=== PATIENT | female | born 1995 | race Caucasian/White ===

== ENCOUNTER 2017-10-23 18:44 | Observation (INO) | payer OTHER ==
[2017-10-23] MEDS ORDERED: NS 0.9% 1000 ML* 1,000 ML IV ONE (19:18)
[2017-10-23] MEDS ORDERED: Morphine INJ* 4 MG/ML 1 ML CARPUJECT IV ONE ×2 (19:18→21:23)
[2017-10-23 19:47] LABS: Hematocrit 40 % (35-47); Hemoglobin 13.8 g/dl (12.0-16.0); Mean Corpuscular HGB Conc 35 g/dl (31-36); Mean Corpuscular Hemoglobin 31 pg (27-31); Mean Corpuscular Volume 88 fL (80-97); Mean Platelet Volume 8 um3 (7.4-10.4); Red Blood Count 4.53 10^6/ul (4.0-5.4); Red Cell Distribution Width 13 % (10.5-15); White Blood Count 10.6 10^3/ul (3.5-10.8)
[2017-10-23] MEDS: Ondansetron INJ* 2 MG/ML VIAL IV ONE (19:49)
[2017-10-23 20:01] LABS: ALT 12 U/L (7-52); AST 16 U/L (13-39); Albumin 4.2 g/dL (3.2-5.2); Alkaline Phosphatase 44 U/L (34-104); Anion Gap 10 mmol/L (2-11); Blood Urea Nitrogen 7 mg/dL (6-24); C Reactive Protein 11.68 mg/L (< 5.00); CO2 Carbon Dioxide 22 mmol/L (22-32); Calcium 9.6 mg/dL (8.6-10.3); Chloride 102 mmol/L (101-111); EGFR African American 104.7 (>60); EGFR Non-African American 81.4 (>60); Globulin 3.1 g/dL (2-4); Glucose 90 mg/dL (70-100); Lipase 13 U/L (11.0-82.0); Potassium 3.5 mmol/L (3.5-5.0); Sodium 134 mmol/L (133-145); Total Protein 7.3 g/dL (6.4-8.9)
[2017-10-23] MEDS ORDERED: Ketorolac INJ* 30 MG/ML 1 ML VIAL IV PUSH ONE (20:01)
[2017-10-23] MEDS ORDERED: Ketorolac INJ* 30 MG/ML 1 ML VIAL ONE (20:02)
[2017-10-23] MEDS ORDERED: Iohexol 300* (CONTRAST) 10 ML SDV IV ONE (20:27)
--- NOTE | 2017-10-23 21:15 | RAD ---
INDICATION: Abdominal pain COMPARISON: None TECHNIQUE: Axial source images were obtained from the hemidiaphragms to the symphysis pubis following administration of intravenous contrast only. 69 mL Omnipaque 300 was utilized. Coronal and sagittal reconstructed images were acquired. The lack of oral contrast and a paucity of fat plates leads to a mild limitation in the sensitivity of this examination. Lung bases: The lung bases are clear. Liver: The liver is normal in size. There are no masses. There is no ductal dilatation. Gallbladder: There are no calcified gallstones. There is no evidence of wall thickening or pericholecystic fluid. Spleen: The spleen is normal in size. There are no masses. Pancreas: There is no focal pancreatic mass or ductal dilatation. Adrenal glands: There is no evidence of adrenal mass. Kidneys: The kidneys are normal in size and position. There are prompt nephrograms and there is prompt excretion bilaterally. There are no renal parenchymal masses. There is no evidence of nephrolithiasis. Adenopathy: There is no evidence of adenopathy by size criteria. Fluid collections: There are no free or localized fluid collections. Vessels:There are no significant atherosclerotic changes involving the aorta. There is no focal aneurysm. The iliac vessels are normal in caliber. The IVC appears normal. GI tract: Evaluation of bowel is limited without oral contrast. There are no gross abnormalities the upper GI tract. The colon is unremarkable. The appendix is visualized and appears normal. Pelvic organs: The uterus and adnexa appear normal Bladder: There are no bladder masses. Abdominal and pelvic soft tissues: The extraperitoneal abdominal and pelvic soft tissues appear normal.. Osseous structures: There are no acute osseous findings. Other: None IMPRESSION: NO SPECIFIC CT ABNORMALITIES WITHIN LIMITATIONS OF THIS EXAMINATION. NORMAL APPENDIX.
[2017-10-23 23:13] LABS: Urine Bilirubin Negative (Negative); Urine Glucose Negative (Negative); Urine Nitrite Negative (Negative)
[2017-10-23] MEDS ORDERED: ceFOXitin 2 GM IVPREMIX* 2 GM/50 ML BAG IVPB ONE (23:51)
[2017-10-23] MEDS ORDERED: DOXYcycline IV* 100 MG in NS 0.9% 250 ML* 250 ML IVPB ONE (23:51)
[2017-10-24] MEDS ORDERED: NS 0.9% 1000 ML* 1,000 ML IV ONE ×2 (00:47→05:16)
[2017-10-24] MEDS ORDERED: Ondansetron INJ* 2 MG/ML VIAL ONE (01:12)
[2017-10-24] MEDS: Ondansetron INJ* 2 MG/ML VIAL IV ONE (01:13)
[2017-10-24] MEDS ORDERED: Morphine INJ* 4 MG/ML 1 ML CARPUJECT IV ONE (02:18)
[2017-10-24] MEDS ORDERED: Morphine INJ* 10 MG/ML 1 ML CARPUJECT ONE (02:25)
[2017-10-24] MEDS ORDERED: Acetaminophen TAB* 325 MG ONE (03:47)
[2017-10-24] MEDS ORDERED: Acetaminophen TAB* 325 MG PO ONE (03:51)
[2017-10-24] MEDS ORDERED: Morphine INJ* 2 MG/ML 1 ML SYRINGE (TWO MG - NEW SYRINGE VERSION) IV PRN (05:02)
[2017-10-24] MEDS ORDERED: LORazepam INJ* 2 MG/ML 1 ML VIAL IV PUSH PRN (05:02)
[2017-10-24] MEDS ORDERED: Al Hydrox/Mg Hydrox/Simet LIQ* 30 ML UDC PO PRN (05:04)
[2017-10-24] MEDS ORDERED: Senna TAB PO PRN (05:04)
[2017-10-24] MEDS ORDERED: Docusate CAP* 100 MG PO PRN (05:04)
[2017-10-24] MEDS ORDERED: Morphine INJ* 2 MG/ML 1 ML SYRINGE (TWO MG - NEW SYRINGE VERSION) ONE (05:08)
[2017-10-24] MEDS ORDERED: NS 0.9% 1000 ML* 1,000 ML IV SCH (05:15)
[2017-10-24 05:57] LABS: Erythrocyte Sed Rate 8 mm/Hr (0-14)
[2017-10-24] MEDS ORDERED: Ciprofloxacin 400MG IVPREMIX(* 400 MG/200 ML BAG IVPB SCH (06:00)
--- NOTE | 2017-10-24 06:33 | ED ---
Kenton Kenney Gabriel, scribed for Alexander Sifuentes MD on 10/23/17 at 1917 . Abdominal Pain/Female - HPI Summary HPI Summary: This patient is a 22 year old F BIBA to [facility] with a chief complaint of ABD pain since 11:00 today. The patient rates the pain 5/10 in severity. Symptoms aggravated by breathing and abrupt movements. Patient reports fever, nausea, sore throat, and spotting with brown blood. Patient denies vomiting, cough, melena, joint pain, and painful intercourse. Patient also states there is no chance she is and there is no Chrons disease in her family. She has had similar episodes and was seen but claims it diagnosed as liver problems and dehydration. - History of Current Complaint Chief Complaint: EDAbdPain Stated Complaint: ABD PAIN Hx Obtained From: Patient ?: No Onset/Duration: Sudden Onset, Still Present Timing: Constant Pain Intensity: 5 Pain Scale Used: 0-10 Numeric Location: Discrete At: RLQ Aggravating Factor(s): Movement, Deep Breaths Associated Signs and Symptoms: Positive: Negative - vomiting, cough, melena, joint pain, and painful intercourse., Other: - fever, nausea, sore throat, and spotting with brown blood Allergies/Adverse Reactions: Allergies Allergy/AdvReac Type Severity Reaction Status Date / Time No Known Allergies Allergy Verified 10/23/17 18:59 PMH/Surg Hx/FS Hx/Imm Hx Previously Healthy: Yes Endocrine/Hematology History: Denies: Hx Diabetes Cardiovascular History: Denies: Hx Myocardial Infarction Respiratory History: Denies: Hx Chronic Obstructive Pulmonary Disease (COPD) Infectious Disease History: No Infectious Disease History: Denies: Traveled Outside the [place] in Last 30 Days - Family History Known Family History: Positive: Cardiac Disease Negative: Diabetes - Social History Alcohol Use: Occasionally Hx Substance Use: Yes Substance Use Type: Reports: Marijuana Hx Tobacco Use: No Smoking Status (MU): Never Smoked Tobacco Do You Chew or Dip Tobacco: No Review of Systems Positive: Fever Positive: Sore Throat Negative: Cough Gastrointestinal: Negative - melena Positive: Abdominal Pain, Nausea. Negative: Vomiting Genitourinary: Negative - painful intercourse Positive: other - vaginal spotting Musculoskeletal: Negative - joint pain All Other Systems Reviewed And Are Negative: Yes Physical Exam - Summary Physical Exam Summary: Appearance: Well appearing, no pain distress Skin: warm, dry, reflects adequate perfusion Head/face: normal Eyes: EOMI, ALEJA ENT: tonsils are enlarged but there are no exudates Neck: supple, non-tender Respiratory: CTA, breath sounds present Cardiovascular: pulses symmetrical, patient is tachycardia but regular Abdomen: non-tender, soft, no CVA tenderness, no guarding but moderate right sided tenderness with positive Mcburneys point Bowel: present Musculoskeletal: normal, strength/ROM intact, negative obturator and psoas signs Neuro: normal, sensory motor intact, A&Ox3 Vaginal : Moderate chocolate brown discharge with cervical mucus. No cervical motion tenderness. No adnexal masses, uterus feels large Performed with Bambi in the room Triage Information Reviewed: Yes Vital Signs On Initial Exam: Initial Vitals Temp Pulse Resp BP Pulse Ox 103.4 F 113 20 110/73 98 10/23/17 18:48 10/23/17 18:48 10/23/17 18:48 10/23/17 18:48 10/23/17 18:48 Vital Signs Reviewed: Yes Diagnostics - Vital Signs Vital Signs Temp Pulse Resp BP Pulse Ox 10/23/17 18:48 103.4 F 113 20 110/73 98 - Laboratory Lab Results: Lab Results 10/23/17 10/23/17 10/23/17 Range/Units 19:35 19:35 19:35 WBC 10.6 (3.5-10.8) 10^3/ul RBC 4.53 (4.0-5.4) 10^6/ul Hgb 13.8 (12.0-16.0) g/dl Hct 40 (35-47) % MCV 88 (80-97) fL MCH 31 (27-31) pg MCHC 35 (31-36) g/dl RDW 13 (10.5-15) % Plt Count 216 (150-450) 10^3/ul MPV 8 (7.4-10.4) um3 Neut % (Auto) 91.4 H (38-83) % Lymph % (Auto) 2.5 L (25-47) % Grimes % (Auto) 5.7 (1-9) % Eos % (Auto) 0.1 (0-6) % Baso % (Auto) 0.3 (0-2) % Absolute Neuts (auto) 9.7 H (1.5-7.7) 10^3/ul Absolute Lymphs (auto) 0.3 L (1.0-4.8) 10^3/ul Absolute Monos (auto) 0.6 (0-0.8) 10^3/ul Absolute Eos (auto) 0 (0-0.6) 10^3/ul Absolute Basos (auto) 0 (0-0.2) 10^3/ul Absolute Nucleated RBC 0 10^3/ul Nucleated RBC % 0 ESR 8 (0-14) mm/Hr Sodium 134 (133-145) mmol/L Potassium 3.5 (3.5-5.0) mmol/L Chloride 102 (101-111) mmol/L Carbon Dioxide 22 (22-32) mmol/L Anion Gap 10 (2-11) mmol/L BUN 7 (6-24) mg/dL Creatinine 0.87 (0.51-0.95) mg/dL Est GFR ( Amer) 104.7 (>60) Est GFR (Non-Af Amer) 81.4 (>60) BUN/Creatinine Ratio 8.0 (8-20) Glucose 90 (70-100) mg/dL Lactic Acid 0.9 (0.5-2.0) mmol/L Calcium 9.6 (8.6-10.3) mg/dL Total Bilirubin 0.60 (0.2-1.0) mg/dL AST 16 (13-39) U/L ALT 12 (7-52) U/L Alkaline Phosphatase 44 (34-104) U/L C-Reactive Protein 11.68 H (< 5.00) mg/L Total Protein 7.3 (6.4-8.9) g/dL Albumin 4.2 (3.2-5.2) g/dL Globulin 3.1 (2-4) g/dL Albumin/Globulin Ratio 1.4 (1-3) Lipase 13 (11.0-82.0) U/L Beta HCG, Quant < 0.60 mIU/mL Urine Color Urine Appearance Urine pH (5-9) Ur Specific [place] (1.010-1.030) Urine Protein (Negative) Urine Ketones (Negative) Urine Blood (Negative) Urine Nitrate (Negative) Urine Bilirubin (Negative) Urine Urobilinogen (Negative) Ur Leukocyte Esterase (Negative) Urine Glucose (Negative) Influenza A (Rapid) (Negative) Influenza B (Rapid) (Negative) 10/23/17 10/23/17 Range/Units 21:36 23:01 WBC (3.5-10.8) 10^3/ul RBC (4.0-5.4) 10^6/ul Hgb (12.0-16.0) g/dl Hct (35-47) % MCV (80-97) fL MCH (27-31) pg MCHC (31-36) g/dl RDW (10.5-15) % Plt Count (150-450) 10^3/ul MPV (7.4-10.4) um3 Neut % (Auto) (38-83) % Lymph % (Auto) (25-47) % Grimes % (Auto) (1-9) % Eos % (Auto) (0-6) % Baso % (Auto) (0-2) % Absolute Neuts (auto) (1.5-7.7) 10^3/ul Absolute Lymphs (auto) (1.0-4.8) 10^3/ul Absolute Monos (auto) (0-0.8) 10^3/ul Absolute Eos (auto) (0-0.6) 10^3/ul Absolute Basos (auto) (0-0.2) 10^3/ul Absolute Nucleated RBC 10^3/ul Nucleated RBC % ESR (0-14) mm/Hr Sodium (133-145) mmol/L Potassium (3.5-5.0) mmol/L Chloride (101-111) mmol/L Carbon Dioxide (22-32) mmol/L Anion Gap (2-11) mmol/L BUN (6-24) mg/dL Creatinine (0.51-0.95) mg/dL Est GFR ( Amer) (>60) Est GFR (Non-Af Amer) (>60) BUN/Creatinine Ratio (8-20) Glucose (70-100) mg/dL Lactic Acid (0.5-2.0) mmol/L Calcium (8.6-10.3) mg/dL Total Bilirubin (0.2-1.0) mg/dL AST (13-39) U/L ALT (7-52) U/L Alkaline Phosphatase (34-104) U/L C-Reactive Protein (< 5.00) mg/L Total Protein (6.4-8.9) g/dL Albumin (3.2-5.2) g/dL Globulin (2-4) g/dL Albumin/Globulin Ratio (1-3) Lipase (11.0-82.0) U/L Beta HCG, Quant mIU/mL Urine Color Yellow Urine Appearance Clear Urine pH 5.0 (5-9) Ur Specific [place] > 1.060 H (1.010-1.030) Urine Protein Negative (Negative) Urine Ketones 2+ H (Negative) Urine Blood Negative (Negative) Urine Nitrate Negative (Negative) Urine Bilirubin Negative (Negative) Urine Urobilinogen Negative (Negative) Ur Leukocyte Esterase Negative (Negative) Urine Glucose Negative (Negative) Influenza A (Rapid) Negative (Negative) Influenza B (Rapid) Negative (Negative) Result Diagrams: 10/23/17 19:35 10/23/17 19:35 Lab Statement: Any lab studies that have been ordered have been reviewed, and results considered in the medical decision making process. - CT CT ABD/Pelvis CT Interpretation Completed By: Radiologist - NO SPECIFIC CT ABNORMALITIES WITHIN LIMITATIONS OF THIS EXAMINATION. NORMAL APPENDIX. ED physician has reviewed this radiology report and agrees CT ABD/Pelvis CT Interpretation Completed By: Radiologist - thickening of wall of terminal ilium consistent with ileitis ED physician has reviewed this radiology report and agrees. - Additional Comments Diagnostic Additional Comments: Pelvic US reveals, no evidence for acute diseae. ED physician has reviewed this radiology report and agrees. Re-Evaluation - Re-Evaluation First Eval Comment: pt with fluxation and recurrence of pain throughtout stay. Her fever went up and down several times. Abdominal Pain Fem Course/Dx - Course Course Of Treatment: Pt with high fever and RLQ pain. Initial CT was non- diagnostic but I had concern for TI. US was then neg and I counseled pt about re -CT with oral contrast for purpose of diagnosis of TI and possible Crohns. This CT was + for terminal ileitus, likely due to Crohns. Pt reported that she had RLQ pain in the past which was worked up and she was told it was due to "dehydration". Admit, IV abx, GI consult for possible colonoscopy. - Diagnoses Provider Diagnoses: Terminal ileitis, Acute Crohn's disease, Severe sepsis - Provider Notifications Discussed Care Of Patient With: Pebbles Leblanc Time Discussed With Above Provider: 04:39 Instructed by Provider To: Other - Discussed patient health with Dr. Leblanc she agreed to admit the patient. - Critical Care Time Critical Care Time: 30-74 min - RETURN TO THE EMERGENCY DEPARTMENT FOR CHANGING OR WORSENING SYMPTOMS. Discharge - Discharge Plan Condition: Stable Disposition: ADMITTED TO [facility] documentation as recorded by the Kenton watson Gabriel accurately reflects the service I personally performed and the decisions made by , Alexander Sifuentes MD.
[2017-10-24] MEDS ORDERED: metroNIDAZOLE IV 500 MG/100ML* 500 MG/100 ML BAG IVPB SCH (07:30)
--- NOTE | 2017-10-24 07:34 | RAD ---
INDICATION: Right-sided pelvic pain and right lower quadrant pain. COMPARISON: There are no prior studies available for comparison. TECHNIQUE: Multiple real-time transvaginal images of the pelvis were obtained. FINDINGS: The uterus is normal in size, shape and echogenicity. The uterus measured 9.5 x 4.0 x 6.0 cm. The endometrial echo measured 0.5 cm in thickness. The right ovary measured 3.2 x 1.1 x 2.0 cm. The left ovary measured 3.3 x 1.1 x 2.3 cm. There is vascular flow within both ovaries. No free intraperitoneal fluid is seen. IMPRESSION: NEGATIVE EXAM.
--- NOTE | 2017-10-24 08:10 | RAD ---
CLINICAL HISTORY: Abdominal pain with concern for Crohn's disease. COMPARISON: CT abdomen pelvis dated October 23, 2017 TECHNIQUE: Oral contrast only CT examination of the abdomen and pelvis from the lung bases through the initial tuberosities. FINDINGS: VISUALIZED LUNG BASES: The visualized lung bases are grossly clear. There is no pleural effusion. ABDOMEN AND PELVIS: Evaluation of the solid organs and vasculature is limited without intravenous contrast. The liver, spleen, pancreas and adrenal glands are grossly normal in appearance. The gallbladder is normal. The kidneys are normal in appearance without focal mass, calcification or signs of hydronephrosis. The oral contrast has progressed as far as the splenic flexure. The small and large bowel are not distended. At the terminal ileum there is mild focal bowel wall thickening measuring up to 4 mm in thickness (coronal image 33). The partially gas and partially contrast-filled appendix measures up to 4 mm in diameter (coronal image 28 and axial image 61). There is no gross retroperitoneal or mesenteric lymphadenopathy. The pelvic viscera is normal in appearance. The abdominal aorta and iliac arteries are normal in course and diameter. There are no sinister bone lesions. IMPRESSION: Mild thickening of the wall of the terminal ileum could be seen in the setting of infectious or inflammatory bowel disease. Normal appendix.
[2017-10-24] MEDS: Ondansetron INJ* 2 MG/ML VIAL IV PRN ×2 (08:39→18:20)
[2017-10-24] MEDS: Acetaminophen TAB* 325 MG PO PRN ×3 (08:53→19:47)
[2017-10-24 09:18] LABS: Hematocrit 33 % (35-47); Hemoglobin 11.2 g/dl (12.0-16.0); Mean Corpuscular HGB Conc 34 g/dl (31-36); Mean Corpuscular Hemoglobin 31 pg (27-31); Mean Corpuscular Volume 89 fL (80-97); Mean Platelet Volume 8 um3 (7.4-10.4); Red Blood Count 3.67 10^6/ul (4.0-5.4); Red Cell Distribution Width 12 % (10.5-15)
[2017-10-24 09:40] LABS: BUN/Creatinine Ratio 7.6 (8-20); Calcium 7.5 mg/dL (8.6-10.3); Potassium 3.3 mmol/L (3.5-5.0)
--- NOTE | 2017-10-24 10:48 | PN ---
Subjective Date of Service: 10/24/17 Interval History: This is an otherwise healthy 22 yo female who presented with c/o abd pain and fever. CT demonstrated mild thickening of the terminal ileum. She was admitted for treatment of colitis/enteritis. This am, she reports that her pain is slightly improved. She was febrile most of the night, that has improved this am. She has no appetite and vomited once earlier. She has no diarrhea. Last BM was 1-2d ago and was non-bloody. No h/o bloody BMs or prior c/o's of abd pain. Objective Active Medications: Acetaminophen (Tylenol Tab*) 650 mg PO Q4H PRN PRN Reason: PAIN Last Admin: 10/24/17 08:53 Dose: 650 mg Al Hydrox/Mg Hydrox/Simethicone (Maalox Plus*) 30 ml PO Q6H PRN PRN Reason: INDIGESTION Docusate Sodium (Colace Cap*) 100 mg PO BID PRN PRN Reason: CONSTIPATION Sodium Chloride (Ns 0.9% 1000 Ml*) 1,000 mls @ 150 mls/hr IV PER RATE NORBERTO Last Admin: 10/24/17 07:33 Dose: 150 mls/hr Ciprofloxacin/Dextrose (Cipro 400 Mg Ivpremix(*)) 400 mg in 200 mls @ 200 mls/ hr IVPB Q12H NORBERTO Metronidazole/Sodium Chloride (Flagyl 500 Mg Ivpb*) 500 mg in 100 mls @ 100 mls /hr IVPB Q8H NORBERTO Lorazepam (Ativan Inj*) 0.5 mg IV PUSH Q4H PRN PRN Reason: ANXIETY Morphine Sulfate (Morphine Inj (Syringe)*) 2 mg IV Q4H PRN PRN Reason: PAIN - MILD Last Admin: 10/24/17 05:11 Dose: 2 mg Ondansetron HCl (Zofran Inj*) 4 mg IV Q4H PRN PRN Reason: NAUSEA/VOMITING Last Admin: 10/24/17 08:39 Dose: 4 mg Senna (Senokot Tab*) 1 tab PO BID PRN PRN Reason: CONSTIPATION Vital Signs: Temp Pulse Resp BP Pulse Ox 99.9 F 102 20 96/50 100 10/24/17 06:52 10/24/17 06:52 10/24/17 08:25 10/24/17 06:52 10/24/17 06:52 Oxygen Devices in Use Now: None Appearance: Mildly ill appearing young female in NAD Respiratory: Symmetrical Chest Expansion and Respiratory Effort, Clear to Auscultation Cardiovascular: NL Sounds; No Murmurs; No JVD, RRR Abdominal: - - BS present, soft, somewhat diffuse abd TTP, worst in RLQ Extremities: No Edema Skin: No Rash or Ulcers Neurological: Alert and Oriented x 3 Result Diagrams: 10/24/17 09:00 10/24/17 09:00 Additional Lab and Data: . Diagnostic Imaging: CT abd/pelvis - mild thickening of the terminal ileum, nl appearing appendix TVUS - WNL Assess/Plan/Problems-Billing Assessment: This is an otherwise healthy 22 yo female who present with fever and abd pain. CT suggestive of a colitis/enteritis. - Patient Problems (1) Colitis Comment: This appears infectious as opposed to inflammatory as her symptoms are acute with associated fever Cont Cipro/Flagyl along with supportive care measures Status and Disposition: Observation. Anticipate dc later today or tomorrow, once she is able to tolerate oral intake.
--- NOTE | 2017-10-24 10:56 | HP ---
CC: [facility] * HISTORY AND PHYSICAL: DATE OF ADMISSION: 10/24/17 TIME OF EVALUATION: 0500 PRIMARY CARE PHYSICIAN: [facility]. CHIEF COMPLAINT: Abdominal pain. HISTORY OF PRESENT ILLNESS: This is a 22-year-old female with an unremarkable past medical history who presented to [facility] via EMS after developing a fever and right lower quadrant pain. The patient states yesterday she developed right-sided mid abdominal pain with high fevers and muscle aches and she states she was shallow breathing throughout the entire day. [facility] went to [facility], which subsequently brought her to the emergency room for further evaluation. She states she had a similar attack several years ago and she was told that she had a kidney infection at that time. She states she had 1 large loose stool last evening, otherwise no other diarrhea. No nausea, vomiting. No changes in her weight. No recent travel. No sick contacts. Normally, she has regular bowel movements. She denies any URI symptoms. No dysuria. Last menstrual period was few months ago as she was on the control pill. She has been having some irregular spotting off and on for the few weeks. Otherwise remaining review of systems negative. In the emergency room, the patient had labs and imaging. She was given Tylenol 925 mg, cefoxitin 2 g, doxycycline, Toradol 30 mg, Morphine a total of 12 mg, Zofran and 2 L of normal saline and was referred to the hospitalist service for further evaluation. PAST MEDICAL HISTORY: Unremarkable. MEDICATIONS: control pills. ALLERGIES: No known drug allergies. FAMILY HISTORY: No family history of IBD. 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 She states her parents live in [place]. She socially drinks alcohol. She smokes marijuana every few days. Denies other illicit drug use. Code status, full code. REVIEW OF SYSTEMS: A 14-point review of systems as mentioned in the HPI, otherwise negative. PHYSICAL EXAMINATION GENERAL: No acute distress, resting comfortably. VITAL SIGNS: Temp, T-max 104 down to 102, pulse rate 104, respiratory rate 16, oxygen saturation 96% on room air, blood pressure 93/43. HEENT: Head: Normocephalic. Pupils equal and reactive, anicteric. Oropharynx : Mucous membranes moist. No erythema or exudate. NECK: Supple. No lymphadenopathy. RESPIRATORY: Clear to auscultation. No wheezes, rhonchi or rales. CARDIAC: Tachycardia. No murmurs, rubs or gallops. ABDOMEN: Positive bowel sounds. Soft. She has right-sided tenderness and no distention. EXTREMITIES: No clubbing, cyanosis or edema. +2 DPs. NEUROLOGIC: Alert and oriented x3. No focal neurologic deficits. LABORATORY DATA: White count 10.6, hemoglobin 13.8, hematocrit 40, platelets 216, neutrophils 91. Sodium 134, potassium 3.5, chloride 102, bicarb 22, BUN 7 , creatinine 0.87, glucose 90. CRP 11.6, beta hCG less than 0.6. Urinalysis shows +2 ketones, specific gravity 1.060, influenza negative. RADIOGRAPHIC DATA: Abdominal and pelvic CT shows no specific CT abnormalities on limited examination, normal appendix. She did have a CT with oral contrast done, which showed mild nonspecific wall thickening and the terminal ileum consistent with mild infectious or inflammatory terminal ileitis, nonspecific subcentimeter mesenteric lymph nodes most likely due to mesenteric adenitis. Normal color flow and Doppler waveform seen in both ovaries. No evidence of ovarian torsion on transvaginal ultrasound. ASSESSMENT: This is a 22-year-old female with an unremarkable past medical history who presents to emergency room with acute onset of right-sided abdominal pain in the setting of fever, found to have terminal ileitis. 1. Abdominal pain and fever. Assessment: The patient was found to have terminal ileitis on CT scan. CT scan most concerning for Crohn's disease, however, the acute onset x2 days. Plan: We will continue IV fluids. Continue antibiotics. We will change her over to Cipro and Flagyl. Pain control and antiemetics. We will hold off on any steroids. We will follow up with GI in the morning. We will order some stool studies as well and keep her on a clear liquid diet. 2. FEN: As mentioned, clear liquids and IV fluids. 3. DVT prophylaxis. The patient scores a 0. We will encourage ambulation. 4. Code status: Full code. PATIENT TIME: Greater than 50 minutes were spent doing the history and physical , more than half the time spent in direct patient contact. [id number]/[facility] #: [id number] [facility]
[2017-10-24] MEDS: metroNIDAZOLE IV 500 MG/100ML* 500 MG/100 ML BAG IVPB SCH (17:01)
[2017-10-24] MEDS: Ciprofloxacin 400MG IVPREMIX(* 400 MG/200 ML BAG IVPB SCH (19:47)
[2017-10-24] MEDS: Phenol 1.4% Spray* 177 ML BTL MT PRN (21:28)
[2017-10-25] MEDS: metroNIDAZOLE IV 500 MG/100ML* 500 MG/100 ML BAG IVPB SCH ×2 (00:33→09:28)
[2017-10-25 07:23] VITALS: BP 109/59
[2017-10-25] MEDS: Acetaminophen TAB* 325 MG PO PRN (07:39)
[2017-10-25] MEDS: Phenol 1.4% Spray* 177 ML BTL MT PRN (07:39)
[2017-10-25] MEDS: Ciprofloxacin 400MG IVPREMIX(* 400 MG/200 ML BAG IVPB SCH (07:39)
--- NOTE | 2017-10-26 12:53 | DS ---
CC: [facility] * DISCHARGE SUMMARY: DATE OF ADMISSION: 10/24/17 DATE OF DISCHARGE: 10/25/17 PRIMARY CARE PROVIDER: [facility]. DISCHARGING PROVIDER: FERNANDO Naranjo SUPERVISING PHYSICIAN: Dr. Benita Hester * (DICTATED BY FERNANDO NARANJO) PRIMARY DISCHARGE DIAGNOSIS: Febrile gastroenteritis. SECONDARY DISCHARGE DIAGNOSIS: None. DISCHARGE MEDICATIONS: Oral contraceptive pill. Medication changes: None. HOSPITAL IMAGIN. CT of the abdomen and pelvis shows no specific CT abnormalities with IV contrast, a normal appearing appendix. 2. A transvaginal ultrasound is unremarkable. 3. CT of the abdomen and pelvis with oral contrast shows mild thickening of the wall of the terminal ileum and again a normal appearing appendix. 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 The patient's initial labs showed no significant leukocytosis. Chemistries were unremarkable , but she was febrile with a maximum temperature in the emergency department of [address] of the abdomen and pelvis was initially done with IV contrast only, which showed a normal appearing appendix and then was subsequently repeated with oral contrast, which showed some thickening of the terminal ileum, but otherwise a benign study. The patient was subsequently admitted to the hospital for symptom management, she was unable to take anything by mouth. She was empirically started on Cipro and Flagyl for possible colitis. Because of the location of the bowel wall thickening on CT, the possibility of Crohn's disease was discussed. The patient denied any bloody bowel movements or history of such and no prior history of significant GI complaints. No significant family history of inflammatory bowel disease, Crohn's disease or other inflammatory bowel disease seems unlikely. The patient improved with symptomatic care including fluids and antiemetics and antipyretics as necessary. She did complain of sore throat with some pharyngeal erythema. Strep testing was negative. DISPOSITION AND FOLLOWUP PLAN: The patient is being discharged to home. This is likely a viral process and antibiotics were not included at discharge. Recommend that she maintain a soft and bland diet until her symptoms completely resolves and she follows up with [facility] next week. TIME SPENT: Greater than 30 minutes was spent on this discharge. FERNANDO NARANJO [id number]/[facility] #: [id number] KAMAR
== END 2017-10-25 12:20 | disposition home or self-care (01) ==
LOC: ED 18:44 → MCHPEDS 10-24 05:04 → MEDTELE 10-25 07:28
PROVIDERS: ADMIT Pediatrics; ATTEND Internal Medicine
DX: R10.11 Right upper quadrant pain (principal); R50.9 Fever, unspecified; K52.9 Noninfective gastroenteritis and colitis, unspecified
CPT/HCPCS: 36415; 74176; 74177; 76830; 80048; 80053; 81003; 83605; 83630; 83690; 84702; 85025; 85652; 86140; 87040; 87045; 87046; 87077; 87491; 87493; 87502; 87591; 87651; 87899; 96365; 96366; 96367; 96375; 96376; 99284; A9270-GY; G0378; J0694; J0744; J1885; J2270; J2405; J3480; J3490; Q9967

== ENCOUNTER 2017-12-11 17:52 | Emergency (ER) | payer OTHER ==
[2017-12-11] MEDS ORDERED: NS 0.9% 1000 ML* 1,000 ML IV ONE ×2 (18:36→21:28)
[2017-12-11] MEDS ORDERED: Ondansetron INJ* 2 MG/ML VIAL IV ONE (18:36)
[2017-12-11 19:02] LABS: ABS Basophils 0 10^3/ul (0-0.2); ABS Eosinophils 0.1 10^3/ul (0-0.6); ABS Lymphocytes 0.6 10^3/ul (1.0-4.8); ABS Monocytes 0.6 10^3/ul (0-0.8); ABS Neutrophils 12.6 10^3/ul (1.5-7.7); ABS Nucleated RBC 0 10^3/ul; Eosinophil % 0.6 % (0-6); Hematocrit 44 % (35-47); Hemoglobin 15.1 g/dl (12.0-16.0); Lymphocyte % 4.4 % (25-47); Mean Corpuscular HGB Conc 34 g/dl (31-36); Mean Corpuscular Hemoglobin 30 pg (27-31); Mean Corpuscular Volume 89 fL (80-97); Mean Platelet Volume 9 um3 (7.4-10.4); Nucleated Red Blood Cells % 0; Platelet Count 223 10^3/ul (150-450); Red Blood Count 4.97 10^6/ul (4.0-5.4); Red Cell Distribution Width 13 % (10.5-15); White Blood Count 13.9 10^3/ul (3.5-10.8)
[2017-12-11 19:13] LABS: EGFR Non-African American 88.4 (>60)
[2017-12-11] MEDS ORDERED: Metoclopramide IV* 5 MG/ML 2 ML VIAL IV ONE (21:28)
--- NOTE | 2017-12-12 00:09 | ED ---
Chucho Kenney Nikita, scribed for Leydi Skinner MD on 12/11/17 at 2327 . Progress - Progress Note Progress Note: Pt is feeling better. Pt will be discharged home with instructions to follow up with her PCP in 1-2 days. Pt is agreeable with this plan. INSTRUCTED TO RETURN TO EMERGENCY DEPARTMENT FOR ANY NEW OR WORSENING SYMPTOMS. Course/Dx - Diagnoses Provider Diagnoses: Gastroenteritis The documentation as recorded by the Chucho watson Nikita accurately reflects the service I personally performed and the decisions made by Susanne messer Abdul, MD.
[2017-12-12 00:12] VITALS: BP 100/47
--- NOTE | 2017-12-12 11:23 | ED ---
Rico Kenney Thomas, scribed for Michael Rizzo MD on 12/11/17 at 1931 . GI/ HPI - HPI Summary HPI Summary: This patient is a 22 year old F presenting to [facility] with a chief complaint of diarrhea since 1 pm today. Symptoms aggravated and alleviated by nothing. Patient reports watery and bloody diarrhea and vomiting. The patient reports eating eggs at 9AM today. - History of Current Complaint Chief Complaint: EDNauseaVomitDiarrh Time Seen by Provider: 12/11/17 18:08 Stated Complaint: VOMITING/DIARRHEA Hx Obtained From: Patient Onset/Duration: Started Hours Ago, Still Present Timing: Constant Pain Intensity: 0 Associated Signs and Symptoms: Positive: Other: - Patient reports watery and bloody diarrhea and vomiting. Aggravating Factor(s): Nothing Alleviating Factor(s): Nothing - Additional Pertinent History Primary Care Physician: MINDY - Allergy/Home Medications Allergies/Adverse Reactions: Allergies Allergy/AdvReac Type Severity Reaction Status Date / Time Banana Allergy Swelling Verified 10/24/17 18:30 Of Face,Lips,& Throat PMH/Surg Hx/FS Hx/Imm Hx Endocrine/Hematology History: Denies: Hx Diabetes Cardiovascular History: Denies: Hx Hypertension, Hx Myocardial Infarction Respiratory History: Denies: Hx Chronic Obstructive Pulmonary Disease (COPD) GI History: Reports: Other GI Disorders - Seen for similar issues, dx dehydration History: Denies: Hx Renal Disease Sensory History: Denies: Hx Contacts or Glasses, Hx Hearing Aid Opthamlomology History: Denies: Hx Contacts or Glasses - Immunization History Date of Tetanus Vaccine: utd Date of Influenza Vaccine: unk Infectious Disease History: No Infectious Disease History: Denies: Traveled Outside the [place] in Last 30 Days - Family History Known Family History: Positive: Cardiac Disease Negative: Diabetes - Social History Alcohol Use: None Hx Substance Use: Yes Substance Use Type: Reports: Marijuana Hx Tobacco Use: No Smoking Status (MU): Never Smoked Tobacco Review of Systems Negative: Fever Positive: Vomiting, Diarrhea All Other Systems Reviewed And Are Negative: Yes Physical Exam - Summary Physical Exam Summary: Appearance: The patient is well-nourished in no acute distress and in no acute pain. Skin: The skin is warm and dry and skin color reflects adequate perfusion. HEENT: The head is normocephalic and atraumatic. The pupils are equal and reactive. The conjunctivae are clear and without drainage. Nares are patent and without drainage. Mouth reveals moist mucous membranes and the throat is without erythema and exudate. The external ears are intact. The ear canals are patent and without drainage. The tympanic membranes are intact. Neck: the neck is supple with full range of motion and non-tender. There are no carotid bruits. There is no neck vein distension. Respiratory: Chest is non-tender. Lungs are clear to auscultation and breath sounds are symmetrical and equal. Cardiovascular: Heart is regular rate and rhythm. There is no murmur or rub auscultated. There is no peripheral edema and pulses are symmetrical and equal. Abdomen: The abdomen is soft and non-tender. There are normal bowel sounds heard in all four quadrants and there is no organomegaly palpated. Musculoskeletal: There is no back tenderness noted. Extremities are non-tender with full range of motion. There is good capillary refill. There is no peripheral edema or calf tenderness elicited. Neurological: Patient is alert and oriented to person, place and time. The patient has symmetrical motor strength in all four extremities. Cranial nerves are grossly intact. Deep tendon reflexes are symmetrical and equal in all four extremities. Psychiatric: The patient has an appropriate affect and does not exhibit any anxiety or depression. Triage Information Reviewed: Yes Vital Signs On Initial Exam: Initial Vitals Temp Pulse Resp BP Pulse Ox 96.6 F 130 24 105/71 100 12/11/17 17:54 12/11/17 17:54 12/11/17 17:54 12/11/17 17:54 12/11/17 17:54 Vital Signs Reviewed: Yes - [place] Coma Scale Coma Scale Total: 15 Diagnostics - Vital Signs Vital Signs Temp Pulse Resp BP Pulse Ox 12/11/17 17:54 96.6 F 130 24 105/71 100 - Laboratory Lab Results: Lab Results 12/11/17 12/11/17 12/11/17 Range/Units 18:50 18:50 18:50 WBC 13.9 H (3.5-10.8) 10^3/ul RBC 4.97 (4.0-5.4) 10^6/ul Hgb 15.1 (12.0-16.0) g/dl Hct 44 (35-47) % MCV 89 (80-97) fL MCH 30 (27-31) pg MCHC 34 (31-36) g/dl RDW 13 (10.5-15) % Plt Count 223 (150-450) 10^3/ul MPV 9 (7.4-10.4) um3 Neut % (Auto) 90.9 H (38-83) % Lymph % (Auto) 4.4 L (25-47) % [place] % (Auto) 4.0 (1-9) % Eos % (Auto) 0.6 (0-6) % Baso % (Auto) 0.1 (0-2) % Absolute Neuts (auto) 12.6 H (1.5-7.7) 10^3/ul Absolute Lymphs (auto) 0.6 L (1.0-4.8) 10^3/ul Absolute Monos (auto) 0.6 (0-0.8) 10^3/ul Absolute Eos (auto) 0.1 (0-0.6) 10^3/ul Absolute Basos (auto) 0 (0-0.2) 10^3/ul Absolute Nucleated RBC 0 10^3/ul Nucleated RBC % 0 Sodium 136 (133-145) mmol/L Potassium 3.6 (3.5-5.0) mmol/L Chloride 102 (101-111) mmol/L Carbon Dioxide 24 (22-32) mmol/L Anion Gap 10 (2-11) mmol/L BUN 16 (6-24) mg/dL Creatinine 0.81 (0.51-0.95) mg/dL Est GFR ( Amer) 113.7 (>60) Est GFR (Non-Af Amer) 88.4 (>60) BUN/Creatinine Ratio 19.8 (8-20) Glucose 123 H (70-100) mg/dL Lactic Acid 1.8 (0.5-2.0) mmol/L Calcium 10.0 (8.6-10.3) mg/dL Total Bilirubin 1.20 H (0.2-1.0) mg/dL AST 21 (13-39) U/L ALT 20 (7-52) U/L Alkaline Phosphatase 57 (34-104) U/L C-Reactive Protein 1.07 (< 5.00) mg/L Total Protein 8.0 (6.4-8.9) g/dL Albumin 4.8 (3.2-5.2) g/dL Globulin 3.2 (2-4) g/dL Albumin/Globulin Ratio 1.5 (1-3) Lipase 17 (11.0-82.0) U/L Beta HCG, Quant < 0.60 mIU/mL Result Diagrams: 12/11/17 18:50 12/11/17 18:50 Lab Statement: Any lab studies that have been ordered have been reviewed, and results considered in the medical decision making process. GIGU Course/Dx - Course Course Of Treatment: Ms. Peterson presented with N/V/D since about 1300. She had some eggs today and is concerned that she has salmonella.. Her initial labs are fine, she is afebrile and nontoxic in appearance. She got IV NS and zofran which helped for awhile but is now C/O nausea and pain again. She has been unable to pass stool since she got here almost 4 hours ago. I am giving her more fluid and reglan. I expect she will go home when improved. - Diagnoses Provider Diagnoses: Gastroenteritis Discharge - Discharge Plan Condition: Stable Disposition: HOME Prescriptions: Metoclopramide TAB* [Reglan TAB*] 10 mg PO Q6H PRN #10 tab PRN Reason: Nausea Patient Education Materials: Gastroenteritis (ED) Referrals: [facility] - Neel REICH [Primary Care Provider] - 3 Days Additional Instructions: Follow up at [facility] in 3-4 days. Return to the emergency department for any new or worsening symptoms. The documentation as recorded by the Rico watson Thomas accurately reflects the service I personally performed and the decisions made by me, Michael Rizzo MD.
== END 2017-12-12 00:06 | disposition home or self-care (01) ==
LOC: ED 17:52
DX: K52.9 Noninfective gastroenteritis and colitis, unspecified (principal); R11.10 Vomiting, unspecified; R19.7 Diarrhea, unspecified
CPT/HCPCS: 36415; 80053; 82272; 83605; 83630; 83690; 84702; 85025; 86140; 87045; 87046; 87328; 87329; 87493; 87899; 96374; 96375; 99283; J2405; J2765